=== PATIENT | male | born 1980 | race Caucasian/White ===

== ENCOUNTER → 2016-10-17 | Outpatient (CLI) | payer OTHER ==
--- NOTE | 2016-10-17 15:21 | KCIC ---
Examination: MRI of the right shoulder without contrast HISTORY: History of right shoulder pain COMPARISON: None available TECHNIQUE: Multiplanar, multisequence MR imaging of the right shoulder were performed without contrast FINDINGS: The long head of the biceps tendon is within the bicipital groove. The attachment of the long head of the biceps tendon to the superior labral anchor grossly appears intact. Attachment of the subscapularis tendon, supraspinatus, infraspinatus tendon grossly appears intact. Mild tendinosis of the supraspinatus tendon. Minimal undersurface fraying of the supraspinatus tendon anteriorly. No evidence of rotator cuff tear identified. There is no evidence of labral tear identified. The visualized labrum grossly appears unremarkable. Mild degenerative changes acromioclavicular joint. The acromion is type II. Fat is present within the rotator interval. The muscle bulk grossly appears unremarkable. IMPRESSION: 1. No evidence of full-thickness rotator cuff tear or a labral tear identified. 2. Mild tendinosis supraspinatus tendon. There is minimal undersurface fraying of the supraspinatus tendon anteriorly. 3. Lateral downsloping of the acromion. Correlate for impingement. Electronically signed by: Fernando Dos Santos MD (10/17/2016 3:18 PM) [id number]
== END | disposition home or self-care (01) ==
LOC: KCIC MRI 14:21
PROVIDERS: ATTEND Orthopaedic Surgery
DX: M25.511 Pain in right shoulder (principal)
CPT/HCPCS: 73221